=== PATIENT | male | born 1990 | race Caucasian/White ===

== ENCOUNTER 2025-01-01 16:35 | Emergency (ER) | payer OTHER ==
[~2025-01-01] VITALS: Ht 185.4 cm; Wt 84.4 kg
[2025-01-01 16:46] VITALS: BP 136/72; TEMP 98.3
[2025-01-01] MEDS ORDERED: BUPIVACAINE 0.5 % PF 150 MG/30 ML VIAL ONE (17:12)
[2025-01-01] MEDS: BUPIVACAINE 0.5 % PF 150 MG/30 ML VIAL IJ ONE (17:20)
[2025-01-01 18:10] VITALS: O2SAT 98
== END 2025-01-01 18:20 | disposition home or self-care (01) ==
LOC: ER 16:42
DX: S60.456A Superficial foreign body of right little finger, initial encounter (principal); M79.5 Residual foreign body in soft tissue; W45.8XXA Other foreign body or object entering through skin, initial encounter; Y93.89 Activity, other specified; Y92.090 Kitchen in other non-institutional residence as the place of occurrence of the external cause; Y99.8 Other external cause status
CPT/HCPCS: 64450; 99284; J3490; 11730